=== PATIENT | male | born 1960 | race Caucasian/White ===

== ENCOUNTER 2019-03-23 06:11 | Day surgery (SDC) | payer MEDICARE, MEDICAID, SELFPAY ==
[2019-03-22 10:10] VITALS: BMI 31.1
[2019-03-23 06:39] VITALS: BP 158/82; PULSE 80; RESP 18; TEMP 36.2; O2SAT 94
[2019-03-23 06:47] LABS: Glucose Point of Care 168 mg/dL (70-110)
[2019-03-23] MEDS: sodium chloride 0.9% 1,000 ML 30 ML (06:49)
--- NOTE | 2019-03-23 06:58 | PM.HPUD ---
H&P update H&P Update: DATE OF SURGERY/PROCEDURE: 03/23/19 DATE H&P PERFORMED: 02/24/19 PLANNED PROCEDURE: Operation Date: 03/23/19 07:00 Proposed Procedures p Colonoscopy(Not Applicable) - Everton Post MD Full H&P HPI: PLANNED PROCEDURE: colonoscopy under MAC HPI: H/o colon polyps , no other GI symptoms Perinent History: Medical/Surgical History: Medical History (Updated 03/12/19 @ 10:36 by EMPERATRIZ Figueredo) Aortic root dilation (Acute) last echocardiogram 06/2018 Atypical chest pain (Acute) CAD (coronary artery disease) (Acute) Diabetic peripheral neuropathy (Acute) Dyslipidemia (Acute) HTN (hypertension) (Acute) Insulin dependent diabetes mellitus (Acute) Tobacco use disorder (Acute) Family History: Family History (Updated 03/11/19 @ 10:28 by Cydney Stanley LPN) Sister Heart disease Other Kidney disease Myocardial infarction Social History: Social History Smoking and tobacco status: current every day smoker cigarettes Alcohol intake: never Marital status: Pertinent Exam Findings: PHYSICAL EXAM: alert and oriented x 3 A&P Assessment and plan (1) H/O adenomatous polyp of colon: Colonoscopy under MAC Status: Acute Code(s): Z86.010 - Personal history of colonic polyps
--- NOTE | 2019-03-23 06:58 | ANES.PREANES ---
Pre-Anesthetic Assessment Pre-Anesthetic Assessment: Height/Weight: Height 1.73 m Weight 92.986 kg Temp Pulse Resp BP Pulse Ox 97.1 F L 80 18 158/82 94 03/23/19 06:39 03/23/19 06:39 03/23/19 06:39 03/23/19 06:39 03/23/19 06:39 Proposed Procedure: Operation Date: 03/23/19 07:00 Proposed Procedures p Colonoscopy(Not Applicable) - Everton Post MD Was Beta Augustus taken within 24 hours: N/A Last intake: Intake Last Liquid Date 03/22/19 Last Liquid Time 21:00 Last Solid Date 03/21/19 Last Solid Time 18:00 Social: Social History: Tobacco Airway: Submandibular: WNL Cervical ROM: WNL MP: 2 Dentition: False History/ROS: No significant history except as noted Pulmonary: Pulmonary: COPD and Cough CV/HEM: CV/HEM: CAD and PVD Comments: aortic aneurysm : : None reported Hepatic: Hepatic: None reported GI: GI: GERD Metabolic: Metabolic: DM Musc/skel: Musc/skel: OA/DJD Neuropsych: Neuropsych: None reported Anesthetic Plan: ASA status: IV Anesthesia: MAC Risk of > 500 ml blood loss (7ml/kg in children): No PFSH Anesthesia PFSH: Medical History (Updated 03/22/19 @ 10:02 by Mae Mccormack) Aortic root dilation (Acute) last echocardiogram 06/2018 Atypical chest pain (Acute) CAD (coronary artery disease) (Acute) Diabetic peripheral neuropathy (Acute) Dyslipidemia (Acute) HTN (hypertension) (Acute) Insulin dependent diabetes mellitus (Acute) Tobacco use disorder (Acute) Surgical History (Updated 03/12/19 @ 10:36 by EMPERATRIZ Figueredo) History of intravascular stent placement (Acute) Stent x2 Hx of CABG (Acute) RAZA to LAD Social History Smoking and tobacco status: current every day smoker cigarettes Alcohol intake: never Marital status: Data Anesthesia Other Labs: Laboratory Results - last 48 hr 03/23/19 06:42 POC Glucose 168 Cardiac Studies: No Data to Display
[2019-03-23 07:37] VITALS: BP 118/72; PULSE 73; RESP 16; TEMP 36.7; O2SAT 94
[2019-03-23 07:42] VITALS: BP 117/66; PULSE 69; RESP 18; O2SAT 92
--- NOTE | 2019-03-23 14:41 | ANE.PACU ---
 Inpatient post-anesthesia follow up: Airway intact: Yes Vital signs: Temperature 98.0 F Pulse Rate [Monito r] 69 Respiratory Rate 18 Blood Pressure [Le ft Arm] 117/66 Pulse Oximetry 92 Oxygen Delivery Me thod Room Air Oxygen Flow Rate 3 Fraction of Inspir ed Oxygen Hydration adequate: Yes Nausea and vomiting: No Mental status: Baseline
== END 2019-03-23 07:52 | disposition home or self-care (01) ==
PROVIDERS: Family Provider Family Medicine; PCP Family Medicine; Visit Provider Surgery
PROC: 0DJD8ZZ Inspection of Lower Intestinal Tract, Via Natural or Artificial Opening Endoscopic (ICD-10-PCS; CPT 45378; principal; 2019-03-23 07:00)
DX: Z12.11 Encounter for screening for malignant neoplasm of colon (principal); Z86.010 Personal history of colon polyps; K63.5 Polyp of colon; D12.8 Benign neoplasm of rectum; I25.10 Atherosclerotic heart disease of native coronary artery without angina pectoris; E11.40 Type 2 diabetes mellitus with diabetic neuropathy, unspecified; E78.5 Hyperlipidemia, unspecified; I10 Essential (primary) hypertension; F17.210 Nicotine dependence, cigarettes, uncomplicated; Z82.49 Family history of ischemic heart disease and other diseases of the circulatory system
CPT/HCPCS: 12345; 36416; 45385; 82962; 88305; 96365; J2001; J2704; J7030

== ENCOUNTER 2020-05-15 06:56 | Outpatient (CLI) | payer BC, MEDICAID, SELFPAY ==
--- NOTE | 2020-05-15 07:31 | CT_ITS ---
WS: [id number] LDCT LUNG CANCER SCREENING TECHNIQUE: Noncontrast CT of the chest with coronal and sagittal reformatted images. CLINICAL INFORMATION: TOBACCO USE COMPARISON: CT chest September 30, 2018 DLP: 56.17 mGy.cm DIvol: 1.[address] scans at [facility] use at least one of these dose optimization techniques: automat ed exposure control; mA and/or kV adjustment per patient size (includes targeted exams where dose is matched to clinical indication); or iterative reconstruction. FINDINGS: Again seen are several subcentimeter nodules unchanged since September 30, 2018. Noncalcified nodules larg est measures 6 to 7 mm. No other suspicious pulmonary opacities. Chronic emphysematous changes. Pulmo nary fibrosis in the lung apices. Mosaic lung perfusion unchanged from previous. Prominent mediastinal, and AP window lymph nodes are unchanged and nonspecific but likely reactive. V ascular calcification. Coronary calcification. Adrenal glands are normal. CT/CT lung screening [id number] IMPRESSION: LUNG-RADS: 2-Benign Appearance or Behavior FOLLOW UP: 12 Month: Continue annual screening with LDCT
== END 2020-05-15 06:57 | disposition home or self-care (01) ==
LOC: RAD 06:59
PROVIDERS: PCP Family Medicine; Visit Provider Family Medicine
DX: Z12.2 Encounter for screening for malignant neoplasm of respiratory organs (principal); F17.210 Nicotine dependence, cigarettes, uncomplicated
CPT/HCPCS: 71271

== ENCOUNTER 2021-06-29 12:18 | Outpatient (CLI) | payer BC, MEDICAID, SELFPAY ==
--- NOTE | 2021-06-29 12:27 | CT_ITS ---
WS: [id number] LDCT LUNG CANCER SCREENING HISTORY: HX OF TOBACCO USE TECHNIQUE: Axial imaging performed from the apices to 1 cm below the costophrenic angles. Coronal and sagittal reformats are submitted with axial MIP series. All CT scans at [facility] use at least one of these dose optimization techniques: automated exposure control; mA and/or kV adjustment per patient size (includes targeted exams where dose is matched to clinical indication); or iterativ e reconstruction. DLP: 83.38 mGy.cm DIvol: Mean CTDIvol: 1.60 (mGy) COMPARISON: 05/15/2020, 09/13/2015 Diagnostic quality: Satisfactory Lung Nodules: Noncalcified 3 mm nodule posterior LEFT upper lobe. 6 mm nodule posterior RIGHT lower l obe. No interval change in size of the nodules. Largest nodule has been present since at least 2015. There is mild diffuse interstitial thickening bilaterally. Better aeration than the prior examination . Bronchiectasis in the RIGHT upper lobe. No pneumonia. Lungs: Chronic emphysema. Heart: Normal size heart. Dense calcification in the coronary arteries. Prior CABG. Other findings: Dilated pulmonary artery measures 4 cm. Mild atherosclerosis aorta. No change in the mediastinal and hilar lymph nodes. CT/CT lung screening [id number] IMPRESSION: LUNG-RADS: 2-Benign Appearance or Behavior FOLLOW UP: 12 Month: Continue annual screening with LDCT OTHER FINDINGS (S MODIFIER): None.
== END 2021-06-29 12:19 | disposition home or self-care (01) ==
LOC: RAD 12:19
PROVIDERS: PCP Family Medicine; Visit Provider Family Medicine
DX: Z12.2 Encounter for screening for malignant neoplasm of respiratory organs (principal); F17.211 Nicotine dependence, cigarettes, in remission
CPT/HCPCS: 71271

== ENCOUNTER 2022-11-28 13:44 | Outpatient (CLI) | payer OTHER, MEDICARE, SELFPAY ==
--- NOTE | 2022-11-28 14:01 | CT_ITS ---
WS: [id number] LDCT LUNG CANCER SCREENING HISTORY: HX OF TOBACCO USE TECHNIQUE: Axial imaging performed from the apices to 1 cm below the costophrenic angles. Coronal and sagittal reformats are submitted with axial MIP series. All CT scans at [facility] use at least one of these dose optimization techniques: automated exposure control; mA and/or kV adjustment per patient size (includes targeted exams where dose is matched to clinical indication); or iterativ e reconstruction. DLP: 90.67 mGy.cm DIvol: Mean CTDIvol: 1.70 (mGy) COMPARISON: 06/29/2021, 05/15/2020, 09/30/2018 Diagnostic quality: Breathing motion artifact. Lungs: Advanced chronic emphysematous changes. There are a few scattered pulmonary nodules which are stable since at least 2018 The largest is 6 mm in the RIGHT lower lobe. No areas of consolidation. No central endobronchial lesi ons. Bronchiectasis anterior RIGHT upper lobe. Heart: Normal size heart with no pericardial effusion.. Moderate coronary artery calcifications. Other findings: Moderate atherosclerotic plaque within the thoracic aorta. Marked dilatation of the p ulmonary artery measuring up to 4.3 cm. Mediastinal and hilar lymph nodes are prominent but stable. P rior CABG. IMPRESSION: CT/CT lung screening [id number] LUNG-RADS: 2S-Benign Appearance or Behavior with Significant Findings FOLLOW UP: 12 Month: Continue annual screening with LDCT OTHER FINDINGS (S MODIFIER): Pulmonary hypertension. Marked enlargement of the pulmonary artery.
== END 2022-11-28 13:45 | disposition home or self-care (01) ==
PROVIDERS: PCP Family Medicine; Visit Provider Family Medicine
DX: Z12.2 Encounter for screening for malignant neoplasm of respiratory organs (principal); Z87.891 Personal history of nicotine dependence
CPT/HCPCS: 71271

== ENCOUNTER → 2023-04-23 12:44 | Outpatient (BNVA) | payer MEDICARE, SELFPAY | PROVIDERS: PCP Family Medicine; Visit Provider Internal Medicine Cardiovascular Disease | DX: I25.10 Atherosclerotic heart disease of native coronary artery without angina pectoris (principal); I77.810 Thoracic aortic ectasia; E78.5 Hyperlipidemia, unspecified; I10 Essential (primary) hypertension; E11.42 Type 2 diabetes mellitus with diabetic polyneuropathy; Z79.4 Long term (current) use of insulin; R07.89 Other chest pain; F17.210 Nicotine dependence, cigarettes, uncomplicated | CPT/HCPCS: 99214 ==

== ENCOUNTER 2023-04-30 09:48 | Outpatient (CLI) | payer MEDICARE, SELFPAY ==
--- NOTE | 2023-04-30 10:15 | USCV_ITS ---
Ousmane Alfaro Age: 63 Gender: M : 1960 Exam Date: 04/30/2023 10:05 Ordering Phys: Bruno Tellez MD ([email or web address]) Technologist: ABIOLA [place] [facility] [place]: cp sob BP: 130 / 75 HR: 0 Rhythm: Sinus Technical Quality: Adequate MEASUREMENTS (Male / Female) Normal Values 2D ECHO LV Diastolic Diameter PLAX 5.3 cm 4.2 - 5.9 / 3.9 - 5.3 cm IVS Diastolic Thickness 1.1 cm 0.6 - 1.0 / 0.6 - 0.9 cm IVS Systolic Thickness 1.5 cm LVPW Diastolic Thickness 1.1 cm 0.6 - 1.0 / 0.6 - 0.9 cm LVPW Systolic Thickness 1.5 cm LVOT Diameter 2.0 cm LV Ejection Fraction 2D Teich 68.3 % LV Ejection Fraction MOD 2C 72.4 % IVC Diameter 1.6 cm M-MODE LA Ao Ratio MM 1.1 AV Cusp Separation MM 2.0 cm DOPPLER AV Peak Velocity 143.0 cm/s LVOT Peak Velocity 88.0 cm/s AV Area Cont Eq vti 2.2 cm squared AV Area Cont Eq pk 1.9 cm squared MV Area PHT 3.0 cm squared Mitral E to A Ratio 1.1 TV Peak Velocity 159.5 cm/s TR Peak Velocity 173.0 cm/s TR Peak Gradient 12.0 mmHg Right Atrial Pressure 3.0 mmHg Pulmonary Artery Systolic Pressu 15.0 mmHg PV Peak Velocity 150.0 cm/s FINDINGS Left Ventricle Normal left ventricular size and systolic function, EF 55%. Abnormal septal motion consistent with conduction abnormality. Right Ventricle The right ventricle is normal in size and function. Right Atrium The right atrium is normal in size. Left Atrium The left atrium is normal in size. Mitral Valve Trace to mild mitral valve regurgitation. Aortic Valve Thickened aortic valve. Mild aortic valve regurgitation. Tricuspid Valve No gross abnormalities noted Pulmonic Valve No gross abnormalities noted Pericardium Normal pericardium without effusion. Aorta Normal ascending aorta dimension. IVC The inferior vena cava appears normal. CONCLUSIONS Normal left ventricular size and systolic function, EF 55%. Abnormal septal motion consistent with conduction abnormality. Trace to mild mitral valve regurgitation. Thickened aortic valve. Mild aortic valve regurgitation. There is no pericardial effusion. There are no intracardiac masses. Compared to the study from 06/16/2018, there may not be a significant change Dr Jordin Simon MD FAC (Electronically Signed) Final Date: 03 May 2023 13:00 S
== END 2023-04-30 09:49 | disposition home or self-care (01) ==
LOC: RAD 09:48
PROVIDERS: PCP Family Medicine; Visit Provider Internal Medicine Cardiovascular Disease
DX: I35.1 Nonrheumatic aortic (valve) insufficiency (principal)
CPT/HCPCS: 93306

== ENCOUNTER 2023-06-28 11:05 | Emergency (ER) | payer MEDICARE, SELFPAY ==
[2023-06-28 11:13] VITALS: BP 159/92; PULSE 66; RESP 17; TEMP 36.4; O2SAT 87
--- NOTE | 2023-06-28 11:25 | XRR_ITS ---
PROCEDURE INFORMATION: Exam: XR Chest Exam date and time: 06/28/2023 11:31 AM Age: 63 years old Clinical indication: Other: Hypoxia; Prior surgery; Surgery date: 6+ months; Surgery type: Cabg TECHNIQUE: Imaging protocol: Radiologic exam of the chest. Views: 1 view. COMPARISON: CT lung screening [id number] 11/28/2022 2:09 PM FINDINGS: Lungs: Emphysematous changes. No consolidation. Pleural spaces: Unremarkable. No pleural effusion. No pneumothorax. Heart/Mediastinum: Unremarkable. No cardiomegaly. Bones/joints: Median sternotomy. XR/XR chest 1V portable [id number] IMPRESSION: Emphysematous changes. No focal infiltrate identified.
[2023-06-28 11:35] VITALS: PULSE 61; RESP 16; O2SAT 89
--- NOTE | 2023-06-28 11:35 | ED_ITS ---
HPI - Wound/Laceration General: Chief Complaint: Wound/Laceration Stated Complaint: left ring finger lac Time Seen by Provider: 06/28/23 11:14 Source: patient Mode of arrival: ambulatory Limitations: no limitations History of Present Illness: 63-year-old male who states that he had smashed his finger in a trailer he has a laceration at the base of his left ring finger he denies any pain currently un sure when his last tetanus was he has full range of motion of the finger he is hypoxic here at 85 he has COPD he has no respiratory complaints he denies any shortness of breath or cough. Associated symptoms: Denies chills, fever(s), nausea or vomiting Review of Systems Const: Denies: fever(s) or chills ENMT: Denies: throat pain or dental pain Card: Denies: chest pain Resp: Denies: dyspnea GI: Denies: abdominal pain, nausea, vomiting or diarrhea Musc: Denies: neck pain or back pain Skin/Breast: Denies: rash Neuro: Denies: headache(s) PFSH ED PFSH: Medical History (Updated 06/28/23 @ 12:00 by Brooklyn Barbour MD) Diverticulosis COPD (chronic obstructive pulmonary disease) Hallux rigidus, unspecified foot right Osteoarthritis H/O adenomatous polyp of colon Follow-up colonoscopy in 10 , 2029 Atypical chest pain CAD (coronary artery disease) HTN (hypertension) Aortic root dilation last echocardiogram 06/2018 Dyslipidemia Tobacco use disorder Diabetic peripheral neuropathy Insulin dependent diabetes mellitus Surgical History History of appendectomy S/P colonoscopy with polypectomy 03/23/2019:Sigmoid colon: Moderate diverticulosis with mild inflammation, 5 mm pedunculated polyp removed with a hot snare Rectum: 5 mm sessile polyp removed with a hot snare Hx of CABG RAZA to LAD History of intravascular stent placement Stent x2 Family History Sister Heart disease Other Kidney disease Myocardial infarction Denies family history of Anesthesia complication Bleeding disorder Social History Smoking and tobacco/nicotine status: current every day tobacco/nicotine user c igarettes Alcohol intake: never Substance/Drug Use: never Lives independently: Yes Marital status: Current occupational status: retired Physical Exam Const: COMMON NORMALS: no acute distress, patient oriented x3 and healthy appearing HENMT: COMMON NORMALS: normocephalic and atraumatic HEAD & SCALP: normocephalic and atraumatic Neck/C-Spine: COMMON NORMALS: full ROM and supple Chest: COMMONS NORMALS: normal inspection of the chest Resp: COMMON NORMALS: normal respiratory effort, No retractions, No use of accessory muscles and clear to auscultation bilaterally AUSCULTATION: clear to auscultation bilaterally Cardio: COMMON NORMALS: regular rate RATE: regular rate Extremity: COMMON NORMALS: full ROM Neuro: COMMON NORMALS: patient oriented x3, moves all extremities and no focal motor deficits Psych: COMMON NORMALS: mental status grossly normal, Normal thought process present and cooperative THOUGHT PROCESS: Normal thought process present Skin: NARRATIVE SKIN EXAM: Laceration at the base of left ring finger roughly 2.5 cm no tendon involvement he has full range of motion and strength through his finger Procedures Laceration Laceration 1: Site: hand Side (If applicable): left Size (cm): 2.5 Description: linear Depth: simple, single layer Local Anesthetic: lidocaine 1% Amount of anesthesia used (mL): 5 Pre-repair: wound explored, irrigated extensively and deep structures intact Skin layer closed with: nylon Size (cm): 5-0 Number of sutures: 5 Technique: simple, interrupted Course Vital Signs: Vital signs: Vital Signs Temperature 97.5 F L 06/28/23 11:13 Pulse Rate 62 06/28/23 11:41 Respiratory Rate 16 06/28/23 11:35 Blood Pressure 159/92 06/28/23 11:13 Pulse Oximetry 89 L 06/28/23 11:35 Oxygen Delivery Me thod Room Air 06/28/23 11:35 MDM - Wound/Laceration Medical Decision Making Patient presents here with laceration to his left finger no tendon involvement did repair the laceration he has been hypoxic here this is likely his baseline he has no complaints no dyspnea he is in no distress he is to follow-up with his PCP to recheck his oxygen and to have his sutures removed in 7 to 10 days return if worsening. Medical Records I reviewed the patient's medical records. Lab Data I reviewed the patient's lab results. Laboratory Results Specimen Type Arterial 06/28/23 11:41 Sample Site Radial, right 06/28/23 11:41 ABG pH 7.44 (7.35-7.45) 06/28/23 11:41 ABG pCO2 36.5 mmHg (35-45) 06/28/23 11:41 ABG pO2 47.7 mmHg (80.0-100.0) L 06/28/23 11:41 ABG PO2/FiO2 Ratio 0 06/28/23 11:41 ABG HCO3 24.6 mmol/L (22-26) 06/28/23 11:41 ABG Base Excess 0.8 mmol/L (-2.0-2.0) 06/28/23 11:41 Chester Test Pos 06/28/23 11:41 Hematocrit 56.8 % (42-52) H 06/28/23 11:41 O2 Delivery Device Room air 06/28/23 11:41 FiO2 21.0 % 06/28/23 11:41 Enterprise Engineer ID Cak 06/28/23 11:41 XR interpretation done by ED provider, pending radiology final review ED provider radiology interpretation(s): cxr: no acute changes Discharge Plan Discharge Patient Disposition: Home Clinical Impression: Finger laceration Qualifiers: Encounter type: initial encounter Finger: ring finger Damage to nail status: without damage Foreign body presence: without foreign body Laterality: left Qualified Code(s): S61.215A - Laceration without foreign body of left ring finger without damage to nail, initial encounter Condition: Stable Prescriptions: No Action Levemir FlexTouch U100 Insulin 100 unit/mL (3 mL) insulin pen 15 unit SUBCUT BID metformin 1,000 mg tablet,ER liana.retention 24 hr 1,000 mg PO BID gabapentin 600 mg tablet 600 mg PO TID lisinopril 30 mg tablet 30 mg PO BID atorvastatin 80 mg tablet 80 mg PO DAILY cetirizine [Zyrtec] 10 mg tablet 10 mg PO DAILY PRN (Reason: Allergic Symptoms) cholecalciferol (vitamin D3) [VitaJoy Daily D] 1,000 unit tablet,chewable 1,000 unit PO DAILY aspirin 325 mg tablet 325 mg PO DAILY albuterol sulfate [Ventolin HFA] 90 mcg/actuation HFA aerosol inhaler 1 inh INHALATION BID PRN (Reason: Shortness Of Breath) nitroglycerin [Nitrostat] 0.4 mg tablet, sublingual 0.4 mg SUBLINGUAL Q5M PRN (Reason: Chest Pain) Patient Comments: PROBABLY 6 MONTHS AGO amlodipine 5 mg tablet See Rx Instructions .ROUTE .COMPLEX Rx Instructions: TAKE 2.5 MG IN AM 5 MG IN PM. Brewilliamtri Aerosphere 160-9-4.8 mcg/actuation HFA aerosol inhaler 2 inh inhalation BID Jardiance 25 mg tablet 25 mg PO DAILY Discharge Orders: Discharge ED (Routine); Ordered 06/28/23 Ordered By: Brooklyn Barbour Referrals: Dharmesh Springer MD [Primary Care Provider] - 7-10 days Discharge Diet: Advance as tolerated Discharge Activity: Resume usual activity Patient Instructions: Care For Your Stitches (ED), Finger Laceration (ED) Activity Restrictions/Additional Instructions: suture removal in 10 days Coding Level of Care Code ED Physics Professor for Beatrice Flores
[2023-06-28] MEDS: ipratropium-albuterol 3 mL Neb INHALATION (11:38)
[2023-06-28 11:41] VITALS: PULSE 62
[2023-06-28 11:52] LABS: ABG PCO2 36.5 mmHg (35-45); ABG PH Result 7.44 (7.35-7.45); Arterial Blood Gas Hematocrit 56.8 % (42-52); Base Excess ABG 0.8 mmol/L (-2.0-2.0); Blood Gas Allen Test Pos; Blood Gas Operator Identificat CAK; Blood Gas Sample Site Radial, right; Blood Gas Sample Type Arterial; HCO3 ABG 24.6 mmol/L (22-26); Oxygen Device ROOM AIR; PO2 ABG 47.7 mmHg (80.0-100.0); PO2 FiO2 Ratio Arterial Blood 0
[2023-06-28] MEDS: tetanus-dipt-pertussis 0.5 mL SDV IM (12:11)
[2023-06-28 12:26] VITALS: RESP 18; O2SAT 88
== END 2023-06-28 12:28 | disposition home or self-care (01) ==
PROVIDERS: Emergency Provider Emergency Medicine; PCP Family Medicine
DX: S61.215A Laceration without foreign body of left ring finger without damage to nail, initial encounter (principal); Z79.4 Long term (current) use of insulin; Z79.84 Long term (current) use of oral hypoglycemic drugs; Z79.82 Long term (current) use of aspirin; F17.210 Nicotine dependence, cigarettes, uncomplicated; Z95.1 Presence of aortocoronary bypass graft; J44.9 Chronic obstructive pulmonary disease, unspecified; I25.10 Atherosclerotic heart disease of native coronary artery without angina pectoris; I10 Essential (primary) hypertension; E78.5 Hyperlipidemia, unspecified; E11.42 Type 2 diabetes mellitus with diabetic polyneuropathy; Z23 Encounter for immunization
CPT/HCPCS: 12001; 36600; 71045; 82803; 90715; 94640; 99284

== ENCOUNTER → 2023-11-13 14:02 | Outpatient (BNVA) | payer MEDICARE, SELFPAY | PROVIDERS: PCP Family Medicine; Visit Provider Internal Medicine Cardiovascular Disease | DX: I25.10 Atherosclerotic heart disease of native coronary artery without angina pectoris (principal); I10 Essential (primary) hypertension; I77.810 Thoracic aortic ectasia; F17.200 Nicotine dependence, unspecified, uncomplicated | CPT/HCPCS: 99213 ==

== ENCOUNTER 2024-05-06 13:03 | Oncology outpatient (recurring) (ONCR) | payer MEDICARE, SELFPAY ==
[2024-05-06 14:02] LABS: Basophils # 0.1 10^3/uL (0.0-0.1); Basophils % 0.8 %; Eosinophils # 0.2 10^3/uL (0.0-0.8); Eosinophils % 2.2 %; Hematocrit 55.4 % (37-53); Lymphocytes # 2.4 10^3/uL (0.8-4.8); Lymphocytes % 32.3 %; Mean Corpuscular HGB Conc 33.8 g/dL (30-55); Mean Corpuscular Hemoglobin 29.4 pg (27-33); Mean Corpuscular Volume 87.2 fl (82-101); Mean Platelet Volume 11.3 fL (7.4-10.4); Monocytes # 0.7 10^3/uL (0.2-0.9); Neutrophils # 4.04 10^3/uL (1.8-7.7); Neutrophils % 55.4 %; Nucleated Red Blood Cells % 0 %; Platelet Count 209 10^3/cmm (157-399); Red Blood Count 6.35 10^6/uL (3.85-5.65); Red Cell Distribution Width 15.6 % (12.1-15.1)
[2024-05-06 14:21] LABS: Alanine Aminotransferase 14 U/L (0-41); Albumin Level 4.1 g/dL (3.5-5.2); Alkaline Phosphatase 128 U/L (40-130); Anion Gap 19.1 (5-19); Aspartate Amino Transferase 16 U/L (0-40); Blood Urea Nitrogen 12 mg/dL (8-23); Calcium 9.5 mg/dL (8.5-10.5); Carbon Dioxide 23 mmol/L (22-29); Chloride 98 mmol/L (98-107); Creatinine Clr Calc Pharmacy 94.0719; Erythrocyte Sedimentation Rate 32 mm/hr (0-10); Ferritin 47 ng/mL (30-400); Globulin 3.2 g/dL (1.3-4.6); Glomerular Filtration Rate 135.2 mL/min (90-130); Glucose 106 mg/dL (65-115); Iron 99 ug/dL (59-158); Lactate Dehydrogenase 158 U/L (135-225); Osmolality Calculated 280 mOsm/kg (285-295); Percent Saturation 30.9 % (20-50); Potassium 5.1 mmol/L (3.5-5.1); Sodium 135 mmol/L (136-145); Total Bilirubin 0.7 mg/dL (0.15-1.2); Total Iron Binding Capacity 320 mcg/dl; Total Protein 7.3 g/dL (6.6-8.7); Unsaturated Iron Binding 221 ug/dL (112-347); Uric Acid 6.2 mg/dL (3.4-7.0)
== END 2024-05-07 23:59 | disposition home or self-care (01) ==
PROVIDERS: PCP Family Medicine; Visit Provider Internal Medicine
DX: I77.810 Thoracic aortic ectasia (principal); E78.5 Hyperlipidemia, unspecified; R07.89 Other chest pain; F17.210 Nicotine dependence, cigarettes, uncomplicated; I25.10 Atherosclerotic heart disease of native coronary artery without angina pectoris; I10 Essential (primary) hypertension; D75.1 Secondary polycythemia; E11.9 Type 2 diabetes mellitus without complications; Z79.4 Long term (current) use of insulin; J44.9 Chronic obstructive pulmonary disease, unspecified; R23.0 Cyanosis; R68.3 Clubbing of fingers; G89.29 Other chronic pain
CPT/HCPCS: 36415; 80053; 82728; 83540; 83550; 83615; 84550; 85025; 85651; 86140; 99205

== ENCOUNTER 2024-05-20 12:57 | Oncology outpatient (recurring) (ONCR) | payer MEDICARE, SELFPAY ==
--- NOTE | 2024-05-20 12:45 | US_ITS ---
WS: [id number] Abdomen ultrasound, 05/20/2024 Clinical Data: polycythemia Comparison: Abdomen ultrasound, 03/06/2018 Findings: The pancreas shows no cyst, pseudocyst or evidence of pancreatitis. The liver shows no cysts, masses or dilated intrahepatic ducts. The liver parenchyma shows heterogeneous density consistent with fatty infiltration. The liver measures 15.5 cm. The gallbladder has no stones or sludge. The wall measures 0.3 cm with no pericholecystic fluid. The common bile duct is 0.22 and no intraductal abnormalities are noted. The right kidney is 11.0 cm. There is a 1.9 cm cortical cyst. No hydronephrosis or renal mass is seen. The left kidney is 11.5 cm. No cysts, masses or hydronephrosis is seen. The abdominal aorta is not dilated and the inferior vena cava has normal flow. No vascular abnormalities are seen. The spleen measures 10.3 cm and there are no intrasplenic masses or capsular abnormalities. US/US abdomen complete* [id number] Impression: 1. Fatty infiltration liver. 2. Small right renal cortical cyst. 3. Normal spleen.
== END 2024-06-07 23:59 | disposition home or self-care (01) ==
LOC: RAD 12:57 → ONCMED 05-24 09:15
PROVIDERS: PCP Family Medicine; Visit Provider Internal Medicine
DX: D75.1 Secondary polycythemia (principal); K76.0 Fatty (change of) liver, not elsewhere classified; N28.1 Cyst of kidney, acquired
CPT/HCPCS: 76700

== ENCOUNTER 2024-06-28 10:00 | Oncology outpatient (recurring) (ONCR) | payer MEDICARE, SELFPAY ==
[2024-06-10 13:04] LABS: Basophils # 0.1 10^3/uL (0.0-0.1); Basophils % 0.9 %; Eosinophils # 0.1 10^3/uL (0.0-0.8); Eosinophils % 1.7 %; Hematocrit 55.5 % (37-53); Lymphocytes % 24.5 %; Mean Corpuscular HGB Conc 32.1 g/dL (30-55); Mean Corpuscular Hemoglobin 29.5 pg (27-33); Mean Corpuscular Volume 91.9 fl (82-101); Monocytes # 0.7 10^3/uL (0.2-0.9); Monocytes % 8.3 %; Neutrophils # 5.28 10^3/uL (1.8-7.7); Neutrophils % 64.4 %; Nucleated Red Blood Cells % 0 %; Platelet Count 198 10^3/cmm (157-399); Red Blood Count 6.04 10^6/uL (3.85-5.65); Red Cell Distribution Width 16.2 % (12.1-15.1)
[2024-06-10 13:16] LABS: Alanine Aminotransferase 11 U/L (0-41); Albumin Level 3.8 g/dL (3.5-5.2); Alkaline Phosphatase 137 U/L (40-130); Anion Gap 14.2 (5-19); Aspartate Amino Transferase 15 U/L (0-40); Blood Urea Nitrogen 9 mg/dL (8-23); C Reactive Protein 33.8 mg/L (0.0-4.9); Calcium 8.9 mg/dL (8.5-10.5); Carbon Dioxide 27 mmol/L (22-29); Chloride 98 mmol/L (98-107); Creatinine Clr Calc Pharmacy 96.1979; Globulin 3.5 g/dL (1.3-4.6); Glomerular Filtration Rate 113.2 mL/min (90-130); Glucose 210 mg/dL (65-115); Lactate Dehydrogenase 198 U/L (135-225); Osmolality Calculated 285 mOsm/kg (285-295); Potassium 4.2 mmol/L (3.5-5.1); Sodium 135 mmol/L (136-145); Total Bilirubin 0.4 mg/dL (0.15-1.2); Total Protein 7.3 g/dL (6.6-8.7)
[2024-06-15 12:50] LABS: Erythropoietin 15.4 mIU/mL (2.6-18.5)
== END 2024-07-07 23:59 | disposition home or self-care (01) ==
LOC: ONCMED 11:35
PROVIDERS: PCP Family Medicine; Visit Provider Internal Medicine
DX: Z53.9 Procedure and treatment not carried out, unspecified reason (principal)
CPT/HCPCS: 36415; 80053; 82668; 83615; 85025; 86140; 99213

== ENCOUNTER 2024-07-22 12:30 | Oncology outpatient (recurring) (ONCR) | payer MEDICARE, SELFPAY ==
[2024-07-22 12:59] LABS: Basophils # 0.1 10^3/uL (0.0-0.1); Basophils % 1.1 %; Eosinophils # 0.1 10^3/uL (0.0-0.8); Eosinophils % 1.9 %; Hematocrit 58.6 % (37-53); Lymphocytes # 2.2 10^3/uL (0.8-4.8); Lymphocytes % 29.4 %; Mean Corpuscular HGB Conc 32.4 g/dL (30-55); Mean Corpuscular Hemoglobin 29.5 pg (27-33); Mean Platelet Volume 10.7 fL (7.4-10.4); Monocytes # 0.5 10^3/uL (0.2-0.9); Monocytes % 6.7 %; Neutrophils # 4.49 10^3/uL (1.8-7.7); Neutrophils % 60.6 %; Nucleated Red Blood Cells % 0 %; Platelet Count 232 10^3/cmm (157-399); Red Blood Count 6.44 10^6/uL (3.85-5.65); Red Cell Distribution Width 16.2 % (12.1-15.1); White Blood Count 7.41 10^3/uL (3.29-11.43)
[2024-07-22 13:23] LABS: Alanine Aminotransferase 12 U/L (0-41); Albumin Level 3.7 g/dL (3.5-5.2); Alkaline Phosphatase 134 U/L (40-130); Blood Urea Nitrogen 8 mg/dL (8-23); C Reactive Protein 9.8 mg/L (0.0-4.9); Calcium 9.3 mg/dL (8.5-10.5); Carbon Dioxide 22 mmol/L (22-29); Chloride 97 mmol/L (98-107); Globulin 3.5 g/dL (1.3-4.6); Glucose 179 mg/dL (65-115); Osmolality Calculated 279 mOsm/kg (285-295); Sodium 133 mmol/L (136-145); Total Bilirubin 0.6 mg/dL (0.15-1.2); Total Protein 7.2 g/dL (6.6-8.7)
[2024-07-22 13:25] LABS: Anion Gap 18.7 (5-19); Aspartate Amino Transferase 18 U/L (0-40); Potassium 4.7 mmol/L (3.5-5.1)
[2024-07-22 13:26] LABS: Lactate Dehydrogenase 200 U/L (135-225)
[2024-07-22 15:21] VITALS: BP 94/61; PULSE 75; RESP 17; TEMP 36.4; O2SAT 93
[2024-07-27 13:43] LABS: Erythropoietin 26.4 mIU/mL (2.6-18.5)
== END 2024-08-07 23:59 | disposition home or self-care (01) ==
PROVIDERS: Internal Medicine; PCP Family Medicine; Visit Provider Internal Medicine Medical Oncology
DX: Z53.9 Procedure and treatment not carried out, unspecified reason; D75.1 Secondary polycythemia; I25.10 Atherosclerotic heart disease of native coronary artery without angina pectoris; E11.9 Type 2 diabetes mellitus without complications; I10 Essential (primary) hypertension; R68.3 Clubbing of fingers; J44.9 Chronic obstructive pulmonary disease, unspecified; R23.0 Cyanosis; Z79.4 Long term (current) use of insulin; F17.210 Nicotine dependence, cigarettes, uncomplicated
CPT/HCPCS: 36415; 80053; 82668; 83615; 85025; 86140; 99195; 99214; G0399

== ENCOUNTER 2024-08-19 14:11 | Oncology outpatient (recurring) (ONCR) | payer MEDICARE, SELFPAY ==
[2024-08-19 14:39] LABS: Basophils # 0.1 10^3/uL (0.0-0.1); Basophils % 0.9 %; Eosinophils # 0.2 10^3/uL (0.0-0.8); Hematocrit 56.5 % (37-53); Lymphocytes # 2.9 10^3/uL (0.8-4.8); Mean Corpuscular HGB Conc 33.3 g/dL (30-55); Mean Corpuscular Hemoglobin 29.9 pg (27-33); Mean Corpuscular Volume 89.8 fl (82-101); Mean Platelet Volume 10.6 fL (7.4-10.4); Monocytes # 0.8 10^3/uL (0.2-0.9); Nucleated Red Blood Cells % 0 %; Platelet Count 206 10^3/cmm (157-399); Red Blood Count 6.29 10^6/uL (3.85-5.65); Red Cell Distribution Width 14.9 % (12.1-15.1); White Blood Count 7.81 10^3/uL (3.29-11.43)
== END 2024-09-06 23:59 | disposition home or self-care (01) ==
PROVIDERS: PCP Family Medicine; Visit Provider Internal Medicine Medical Oncology
DX: Z53.9 Procedure and treatment not carried out, unspecified reason; D75.1 Secondary polycythemia; Z79.899 Other long term (current) drug therapy
CPT/HCPCS: 36415; 85025; 99195

== ENCOUNTER 2024-09-16 14:03 | Oncology outpatient (recurring) (ONCR) | payer MEDICARE, SELFPAY ==
[2024-09-16 14:29] LABS: Hematocrit 53.4 % (37-53); Hemoglobin 17.20 g/dL (11.27-16.99); Mean Corpuscular HGB Conc 32.2 g/dL (30-55); Mean Corpuscular Hemoglobin 28.5 pg (27-33); Mean Corpuscular Volume 88.6 fl (82-101); Nucleated Red Blood Cells % 0 %; Platelet Count 215 10^3/cmm (157-399); Red Blood Count 6.03 10^6/uL (3.85-5.65); White Blood Count 7.58 10^3/uL (3.29-11.43)
== END 2024-10-07 23:59 | disposition home or self-care (01) ==
PROVIDERS: PCP Family Medicine; Visit Provider Internal Medicine Medical Oncology
DX: D75.1 Secondary polycythemia (principal)
CPT/HCPCS: 36415; 85025; 99195

== ENCOUNTER 2024-10-14 09:49 | Oncology outpatient (recurring) (ONCR) | payer MEDICARE, SELFPAY ==
[2024-10-14 11:25] LABS: Hematocrit 52.5 % (37-53); Hemoglobin 16.70 g/dL (11.27-16.99); Mean Corpuscular HGB Conc 31.8 g/dL (30-55); Mean Corpuscular Hemoglobin 27.6 pg (27-33); Mean Corpuscular Volume 86.6 fl (82-101); Nucleated Red Blood Cells % 0 %; Platelet Count 220 10^3/cmm (157-399); Red Blood Count 6.06 10^6/uL (3.85-5.65); White Blood Count 7.74 10^3/uL (3.29-11.43)
== END 2024-11-07 23:59 | disposition home or self-care (01) ==
LOC: ONCMED 09:50
PROVIDERS: PCP Family Medicine; Visit Provider Internal Medicine Medical Oncology
DX: D75.1 Secondary polycythemia (principal)
CPT/HCPCS: 85025; 99195

== ENCOUNTER → 2024-11-18 12:41 | Outpatient (BNVA) | payer MEDICARE, SELFPAY | PROVIDERS: PCP Family Medicine; Visit Provider Internal Medicine Cardiovascular Disease | DX: I25.10 Atherosclerotic heart disease of native coronary artery without angina pectoris (principal); I10 Essential (primary) hypertension; E78.5 Hyperlipidemia, unspecified; I71.21 Aneurysm of the ascending aorta, without rupture | CPT/HCPCS: 99214 ==

== ENCOUNTER 2024-11-25 12:54 | Oncology outpatient (recurring) (ONCR) | payer MEDICARE, SELFPAY ==
[2024-11-25 13:25] LABS: Hematocrit 49.7 % (37-53); Hemoglobin 15.80 g/dL (11.27-16.99); Mean Corpuscular HGB Conc 31.8 g/dL (30-55); Mean Corpuscular Hemoglobin 27.1 pg (27-33); Mean Corpuscular Volume 85.1 fl (82-101); Nucleated Red Blood Cells % 0 %; Platelet Count 258 10^3/cmm (157-399); Red Blood Count 5.84 10^6/uL (3.85-5.65); White Blood Count 8.47 10^3/uL (3.29-11.43)
[2024-11-25 13:45] LABS: Alanine Aminotransferase 16 U/L (0-41); Albumin Level 3.9 g/dL (3.5-5.2); Alkaline Phosphatase 128 U/L (40-130); Anion Gap 15.7 (5-19); Aspartate Amino Transferase 20 U/L (0-40); Blood Urea Nitrogen 12 mg/dL (8-23); Calcium 9.2 mg/dL (8.5-10.5); Carbon Dioxide 28 mmol/L (22-29); Chloride 100 mmol/L (98-107); Creatinine Clr Calc Pharmacy 96.9068; Globulin 3.2 g/dL (1.3-4.6); Glucose 231 mg/dL (65-115); Osmolality Calculated 295 mOsm/kg (285-295); Potassium 4.7 mmol/L (3.5-5.1); Sodium 139 mmol/L (136-145); Total Protein 7.1 g/dL (6.6-8.7)
== END 2024-12-07 23:59 | disposition home or self-care (01) ==
PROVIDERS: Internal Medicine Medical Oncology; PCP Family Medicine; Visit Provider Nurse Practitioner
DX: D75.1 Secondary polycythemia (principal); F17.210 Nicotine dependence, cigarettes, uncomplicated; G47.33 Obstructive sleep apnea (adult) (pediatric)
CPT/HCPCS: 36415; 80053; 85025; 99213

== ENCOUNTER 2024-12-23 12:55 | Oncology outpatient (recurring) (ONCR) | payer MEDICARE, SELFPAY ==
[2024-12-23 13:40] LABS: Hematocrit 50.8 % (37-53); Hemoglobin 15.40 g/dL (11.27-16.99); Mean Corpuscular HGB Conc 30.3 g/dL (30-55); Mean Corpuscular Hemoglobin 25.8 pg (27-33); Mean Corpuscular Volume 85.1 fl (82-101); Nucleated Red Blood Cells % 0 %; Platelet Count 258 10^3/cmm (157-399); Red Blood Count 5.97 10^6/uL (3.85-5.65); White Blood Count 8.09 10^3/uL (3.29-11.43)
== END 2025-01-07 23:59 | disposition home or self-care (01) ==
LOC: ONCMED 12:55
PROVIDERS: PCP Family Medicine; Visit Provider Nurse Practitioner
DX: D75.1 Secondary polycythemia (principal)
CPT/HCPCS: 36415; 85025

== ENCOUNTER 2025-01-20 13:33 | Oncology outpatient (recurring) (ONCR) | payer MEDICARE, SELFPAY ==
[2025-01-20 13:45] LABS: Hematocrit 54.4 % (37-53); Hemoglobin 16.50 g/dL (11.27-16.99); Mean Corpuscular HGB Conc 30.3 g/dL (30-55); Mean Corpuscular Hemoglobin 25.3 pg (27-33); Mean Corpuscular Volume 83.6 fl (82-101); Nucleated Red Blood Cells % 0 %; Platelet Count 260 10^3/cmm (157-399); Red Blood Count 6.51 10^6/uL (3.85-5.65); White Blood Count 8.14 10^3/uL (3.29-11.43)
[2025-01-20 14:22] VITALS: BP 94/64; PULSE 87; RESP 17; TEMP 37; O2SAT 90
== END 2025-02-06 23:59 | disposition home or self-care (01) ==
LOC: ONCMED 13:34
PROVIDERS: PCP Family Medicine; Visit Provider Nurse Practitioner
DX: D75.1 Secondary polycythemia (principal)
CPT/HCPCS: 36415; 85025; 99195

== ENCOUNTER 2025-02-24 12:10 | Oncology outpatient (recurring) (ONCR) | payer MEDICARE, SELFPAY ==
[2025-02-24 12:28] LABS: Hematocrit 50.1 % (37-53); Hemoglobin 15.20 g/dL (11.27-16.99); Mean Corpuscular HGB Conc 30.3 g/dL (30-55); Mean Corpuscular Hemoglobin 25.0 pg (27-33); Mean Corpuscular Volume 82.5 fl (82-101); Nucleated Red Blood Cells % 0 %; Platelet Count 246 10^3/cmm (157-399); Red Blood Count 6.07 10^6/uL (3.85-5.65); White Blood Count 8.24 10^3/uL (3.29-11.43)
[2025-02-24 12:46] LABS: Alanine Aminotransferase 12 U/L (0-41); Albumin Level 3.9 g/dL (3.5-5.2); Alkaline Phosphatase 140 U/L (40-130); Anion Gap 18.2 (5-19); Aspartate Amino Transferase 18 U/L (0-40); Blood Urea Nitrogen 12 mg/dL (8-23); Calcium 9.1 mg/dL (8.5-10.5); Carbon Dioxide 25 mmol/L (22-29); Chloride 95 mmol/L (98-107); Globulin 2.9 g/dL (1.3-4.6); Glucose 107 mg/dL (65-115); Osmolality Calculated 276 mOsm/kg (285-295); Potassium 5.2 mmol/L (3.5-5.1); Sodium 133 mmol/L (136-145); Total Protein 6.8 g/dL (6.6-8.7)
== END 2025-03-09 23:59 | disposition home or self-care (01) ==
PROVIDERS: PCP Family Medicine; Visit Provider Nurse Practitioner
DX: Z53.9 Procedure and treatment not carried out, unspecified reason; D75.1 Secondary polycythemia; F17.210 Nicotine dependence, cigarettes, uncomplicated; I25.10 Atherosclerotic heart disease of native coronary artery without angina pectoris; I10 Essential (primary) hypertension; E78.5 Hyperlipidemia, unspecified; J44.9 Chronic obstructive pulmonary disease, unspecified
CPT/HCPCS: 36415; 80053; 85025; 99213